=== PATIENT | male | born 1995 | race Caucasian/White ===

== ENCOUNTER 2016-07-11 17:42 | Emergency (ER) | payer OTHER ==
--- NOTE | 2016-07-11 19:24 | REP ---
Clinical: Foreign body. Technique: AP, lateral, bilateral oblique views of the left fourth digit. Findings: Foreign body consistent with staple is identified in the soft tissues at the level of the distal interphalangeal joint. Osseous involvement cannot definitively be excluded. No obvious fracture. Impression: Foreign body consistent with staple in the soft tissues at the level of the DIP joint. Signed by Jace Kee MD 07/11/2016 07:15 P
[2016-07-11] MEDS ORDERED: LIDOCAINE 1% MDV 20ML VIAL As Ordered ONE (20:06)
[2016-07-11] MEDS ORDERED: CEPHALEXIN 250 MG CAP As Ordered ONE (20:31)
--- NOTE | 2016-07-11 20:55 | EDDOCDS ---
Physician Documentation [facility] Name: Demetria Nayak Age: 21 yrs Sex: Male : 1995 Arrival Date: 07/11/2016 Time: 17:42 Bed TR7 Private MD: MASOUD Tom Disposition: 07/11/16 20:29 Discharged to Home/Self Care. Impression: Puncture wound with foreign body of left ring finger without damage to nail - STAPLE. - Condition is Stable. - Discharge Instructions: Puncture Wound. - Prescriptions for Keflex 500 mg Oral Capsule - take 1 capsule by ORAL route every 8 hours for 10 days; 30 capsule. - Medication Reconciliation, Local Pharmacy Hours form. - Follow up: Emergency Department; When: As needed; Reason: Worsening of conditions. Follow up: MASOUD Tom; When: 4 - 5 days; Reason: Wound/Symptom Recheck, Recheck today's complaints, Continuance of care. - Problem is new. - Symptoms have improved. Historical: - Allergies: no known allergies; - Home Meds: 1. none - PMHx: none; - PSHx: none; - Social history: Smoking status: Patient states was never smoker of tobacco. No barriers to communication noted, The patient speaks fluent Kyrgyz, Speaks appropriately for age. - Family history: Not pertinent. - : The pt / caregiver states he / she is not on anticoagulants. Home medication list is obtained from the patient. - Exposure Risk Screening:: None identified. Vital Signs: 07/11 17:44 BP 149 / 80; Pulse 81; Resp 17; Temp 97.7(T); Pulse Ox 100% on R/A; Weight 79.38 kg / lr2 175 lbs (R); Height 6 ft. 0 in. (182.88 cm) (R); Pain 10/10; 20:35 BP 131 / 65; Pulse 72; Resp 18; Temp 97.5(O); Pulse Ox 99% on R/A; Pain 0/10; ct3 17:44 Body Mass Index 23.73 (79.38 kg, 182.88 cm) lr2 Procedures: 20:08 Foreign Body Removal: a staple, from the left left hand, by using a hemostat, The dt4 patient tolerated the removal well, LEFT RING FINGER CLEANED WITH BETADINE AND DIGITAL BLOCK PERFORMED WITH 1% LIDO WITHOUT EPI. STAPLE REMOVED FROM LEFT RING FINGER. WOUND IRRIGATED WITH STERILE SALINE. PT TOLERATED WELL. TETANUS GIVEN LAST YEAR, PER PT. . MDM: 17:57 Fingers Ordered. EDMS 19:55 Financial registration complete. 20:04 Lidocaine 10 mg/mL (1 %) 10 ml Infiltration once; to bedside, WITHOUT EPI PLEASE, THANK dt4 YOU. ordered. 20:28 Wound Care ordered. dt4 20:29 Cephalexin 500 mg PO once ordered. dt4 20:46 [facility] Payment Agreement was scanned into [employer] and attached to record. gb Administered Medications: 20:37 Drug: Lidocaine 10 ml [lidocaine 10 mg/mL (1 %) injection solution (10 mL)] Route: ld5 Infiltration; 20:37 Follow up: by provider ld5 20:37 Drug: Cephalexin 500 mg [cephalexin 250 mg capsule (2 caps)] Route: PO; ld5 Signatures: Dispatcher MedHost EDNC Marjorie Archer, Reg Reg gb Brianna GarcíaRN RN ld5 Christine Garcia RN RN dsf Rhianna Reece, [place] PAAndrew dt4 The chart was reviewed and I authenticate all verbal orders and agree with the evaluation and treatment provided.Attachments: 20:46 [facility] Payment Agreement gb MTDD
--- NOTE | 2016-07-11 20:55 | EDDOCDS ---
Nurse's Notes [facility] Name: Demetria Nayak Age: 21 yrs Sex: Male : 1995 Arrival Date: 07/11/2016 Time: 17:42 Bed TR7 Private MD: Negro [facility] Diagnosis: Puncture wound with foreign body of left ring finger without damage to nail-STAPLE Presentation: 07/11 17:48 Presenting complaint: Patient states: staple to left ring finger. Adult Sepsis dsf Screening: The patient does not have new or worsening altered mentation. Patient's respiratory rate is less than 22. Systolic blood pressure is greater than 100. Patient has a qSOFA score of 0- Negative Sepsis Screen. Suicide/Homicide risk assessment- the patient denies having any suicidal and/or homicidal ideations and does not present with any other emotional, behavioral or mental health complaints. Status: The patient is an active duty emergency services dispatcher. Transition of care: patient was not received from another setting of care. 17:48 Acuity: ROSALINA Level 4 dsf 17:48 Method Of Arrival: Walkin/Carried/Asstd dsf Triage Assessment: 17:48 General: Appears in no apparent distress, Behavior is appropriate for age, cooperative. dsf Pain: Location: left ring finger Pain currently is 10 out of 10 on a pain scale. Quality of pain is described as stabbing. HIV screening NA for this visit active duty . Musculoskeletal: Reports staple to left ring finger did not pull out it was from a staple gun. Historical: - Allergies: no known allergies; - Home Meds: 1. none - PMHx: none; - PSHx: none; - Social history: Smoking status: Patient states was never smoker of tobacco. No barriers to communication noted, The patient speaks fluent Yakut, Speaks appropriately for age. - Family history: Not pertinent. - : The pt / caregiver states he / she is not on anticoagulants. Home medication list is obtained from the patient. - Exposure Risk Screening:: None identified. Screenin:37 Screening information is obtained from the patient. Fall risk: No risks identified. ld5 Assistance ADL's: requires no assistance with activities of daily living. Abuse/DV Screen: The patient / caregiver reports he/she is: not in a situation that causes fear, pain or injury. Nutritional screening: No deficits noted. Advance Directives: Currently, there is no health care proxy. home support is adequate. Assessment: 20:37 General: Appears in no apparent distress, Behavior is cooperative. Pain: Location: left ld5 ring finger. Neurological: Level of Consciousness is awake, alert. Respiratory: Airway is patent Respiratory effort is even, unlabored. Musculoskeletal: Range of motion intact in all extremities. Vital Signs: 17:44 BP 149 / 80; Pulse 81; Resp 17; Temp 97.7(T); Pulse Ox 100% on R/A; Weight 79.38 kg lr2 (R); Height 6 ft. 0 in. (182.88 cm) (R); Pain 10/10; 20:35 BP 131 / 65; Pulse 72; Resp 18; Temp 97.5(O); Pulse Ox 99% on R/A; Pain 0/10; ct3 17:44 Body Mass Index 23.73 (79.38 kg, 182.88 cm) lr2 Vitals: 17:44 Log In Time: July 11, 2016 at 17:42. lr2 ED Course: 17:44 Patient visited by Brianna Bardales. lr2 17:44 Negro [facility] is Private Physician. lr2 17:44 Patient moved to Waiting lr2 17:45 Patient moved to Pre RCE lr2 17:49 Triage Initiated dsf 19:09 Patient moved to Triage 1 cz 19:45 Patient name changed from Demetria\S\\S\Malini\S\ to Demetria\S\Piarraire\S\Malini. EDMS 19:46 [facility]ian[facility] Reece [facility]C [facility] dt4 19:46 Jeffrey Ayala DO is Attending Physician. dt4 19:46 Patient visited by Rhianna Reece PA-C. dt4 20:03 Patient moved to PD2 / ct3 20:11 Fingers Returned. EDMS 20:28 [facility] is Referral Physician. dt4 20:36 Patient visited by Yomaira Longoria PCA. ct3 20:36 Patient moved to TR7 ld5 20:37 No IV's were initiated during this patient's visit. ld5 20:38 Patient visited by Brianna García RN. ld5 20:46 [facility] Payment Agreement was scanned into [employer]View and attached to record. gb 20:51 The patient / caregiver is instructed regarding the plan of care and ED course. Patient ld5 has correct armband on for positive identification. 20:54 Patient visited by Brianna García RN. ld5 20:54 Assist provider with foreign body removal of staple from left ring finger. Dressings: ld5 Band aid. Administered Medications: 20:37 Drug: Lidocaine 10 ml [lidocaine 10 mg/mL (1 %) injection solution (10 mL)] Route: ld5 Infiltration; 20:37 Follow up: by provider ld5 20:37 Drug: Cephalexin 500 mg [cephalexin 250 mg capsule (2 caps)] Route: PO; ld5 Intake: Order Results: Radiology Order: Fingers Test: Fingers REASON FOR EXAMINATION: LEFT RING FINGER FB; Clinical: Foreign body.; ; Technique: AP, lateral, bilateral oblique views of the left fourth digit.; ; Findings:; Foreign body consistent with staple is identified in the soft tissues at the; level of the distal interphalangeal joint. Osseous involvement cannot; definitively be excluded. No obvious fracture.; ; Impression:; Foreign body consistent with staple in the soft tissues at the level of the DIP; joint.; ; ; Signed by; Jace Kee MD 07/11/2016 07:15 P; Outcome: 20:29 Discharge ordered by Provider. dt4 20:54 Discharge Assessment: Patient awake, alert and oriented x 3. No cognitive and/or ld5 functional deficits noted. Patient verbalized understanding of disposition instructions. patient administered narcotics - no. The following High Risk Discharge criteria are identified: None. Discharged to home ambulatory. Condition: stable. Discharge instructions given to patient, Instructed on discharge instructions, follow up and referral plans. medication usage, wound care, Demonstrated understanding of instructions, medications, Pt was receptive of discharge instructions/ teaching. Prescriptions given X 1. No special radiology studies were completed. Property :Personal belongings accompany Pt. 20:54 Patient left the ED. ld5 Signatures: Dispatcher Med[employer] EDMS Philip Victor, DARCY RN cz Marjorie Archer, Reg Reg gb Brianna García,RN RN ld5 Yomaira Longoria, BITUMASTIC APPLIER BITUMASTIC APPLIER ct3 Christine GarciaRN RN dsf Rhianna Reece, PA-C PA-C dt4 Brianna Bardales lrMichael RANJEETD
--- NOTE | 2016-07-13 21:55 | EDDOCDS ---
Physician Documentation [facility] Name: Demetria Nayak Age: 21 yrs Sex: Male : 1995 Arrival Date: 07/11/2016 Time: 17:42 Bed TR7 Private MD: MASOUD Tom Disposition: 07/11/16 20:29 Discharged to Home/Self Care. Impression: Puncture wound with foreign body of left ring finger without damage to nail - STAPLE. - Condition is Stable. - Discharge Instructions: Puncture Wound. - Prescriptions for Keflex 500 mg Oral Capsule - take 1 capsule by ORAL route every 8 hours for 10 days; 30 capsule. - Medication Reconciliation, Local Pharmacy Hours form. - Follow up: Emergency Department; When: As needed; Reason: Worsening of conditions. Follow up: MASOUD Tom; When: 4 - 5 days; Reason: Wound/Symptom Recheck, Recheck today's complaints, Continuance of care. - Problem is new. - Symptoms have improved. Historical: - Allergies: no known allergies; - Home Meds: 1. none - PMHx: none; - PSHx: none; - Social history: Smoking status: Patient states was never smoker of tobacco. No barriers to communication noted, The patient speaks fluent Pashto, Speaks appropriately for age. - Family history: Not pertinent. - : The pt / caregiver states he / she is not on anticoagulants. Home medication list is obtained from the patient. - Exposure Risk Screening:: None identified. Vital Signs: 07/11 17:44 BP 149 / 80; Pulse 81; Resp 17; Temp 97.7(T); Pulse Ox 100% on R/A; Weight 79.38 kg / lr2 175 lbs (R); Height 6 ft. 0 in. (182.88 cm) (R); Pain 10/10; 20:35 BP 131 / 65; Pulse 72; Resp 18; Temp 97.5(O); Pulse Ox 99% on R/A; Pain 0/10; ct3 17:44 Body Mass Index 23.73 (79.38 kg, 182.88 cm) lr2 Procedures: 20:08 Foreign Body Removal: a staple, from the left left hand, by using a hemostat, The dt4 patient tolerated the removal well, LEFT RING FINGER CLEANED WITH BETADINE AND DIGITAL BLOCK PERFORMED WITH 1% LIDO WITHOUT EPI. STAPLE REMOVED FROM LEFT RING FINGER. WOUND IRRIGATED WITH STERILE SALINE. PT TOLERATED WELL. TETANUS GIVEN LAST YEAR, PER PT. . MDM: 17:57 Fingers Ordered. EDMS 19:55 Financial registration complete. gb 20:04 Lidocaine 10 mg/mL (1 %) 10 ml Infiltration once; to bedside, WITHOUT EPI PLEASE, THANK dt4 YOU. ordered. 20:28 Wound Care ordered. dt4 20:29 Cephalexin 500 mg PO once ordered. dt4 20:46 [facility] Payment Agreement was scanned into [employer] and attached to record. gb 21:08 T-Sheet-- Draft Copy was scanned into [employer] and attached to record. klr 21:11 Radiology Report was scanned into [employer] and attached to record. klr Administered Medications: 20:37 Drug: Lidocaine 10 ml [lidocaine 10 mg/mL (1 %) injection solution (10 mL)] Route: ld5 Infiltration; 20:37 Follow up: by provider ld5 20:37 Drug: Cephalexin 500 mg [cephalexin 250 mg capsule (2 caps)] Route: PO; ld5 Signatures: Dispatcher MedHost EDOH Marjorie Archer, Reg Reg gb Brianna GarcíaRN RN ld5 Christine Garcia RN RN dsf Rhianna Reece PA-C PA-C dt4 Debbie Bernstein The chart was reviewed and I authenticate all verbal orders and agree with the evaluation and treatment provided.Attachments: 20:46 [facility] Payment Agreement gb 21:08 T-Sheet-- Draft Copy klr Chart Complete MTDD
--- NOTE | 2016-07-13 21:55 | EDDOCDS ---
Physician Documentation [facility] Name: Demetria Nayak Age: 21 yrs Sex: Male : 1995 Arrival Date: 07/11/2016 Time: 17:42 Bed TR7 Private MD: MASOUD Tom Disposition: 07/11/16 20:29 Discharged to Home/Self Care. Impression: Puncture wound with foreign body of left ring finger without damage to nail - STAPLE. - Condition is Stable. - Discharge Instructions: Puncture Wound. - Prescriptions for Keflex 500 mg Oral Capsule - take 1 capsule by ORAL route every 8 hours for 10 days; 30 capsule. - Medication Reconciliation, Local Pharmacy Hours form. - Follow up: Emergency Department; When: As needed; Reason: Worsening of conditions. Follow up: MASOUD Tom; When: 4 - 5 days; Reason: Wound/Symptom Recheck, Recheck today's complaints, Continuance of care. - Problem is new. - Symptoms have improved. Historical: - Allergies: no known allergies; - Home Meds: 1. none - PMHx: none; - PSHx: none; - Social history: Smoking status: Patient states was never smoker of tobacco. No barriers to communication noted, The patient speaks fluent Setswana, Speaks appropriately for age. - Family history: Not pertinent. - : The pt / caregiver states he / she is not on anticoagulants. Home medication list is obtained from the patient. - Exposure Risk Screening:: None identified. Vital Signs: 07/11 17:44 BP 149 / 80; Pulse 81; Resp 17; Temp 97.7(T); Pulse Ox 100% on R/A; Weight 79.38 kg / lr2 175 lbs (R); Height 6 ft. 0 in. (182.88 cm) (R); Pain 10/10; 20:35 BP 131 / 65; Pulse 72; Resp 18; Temp 97.5(O); Pulse Ox 99% on R/A; Pain 0/10; ct3 17:44 Body Mass Index 23.73 (79.38 kg, 182.88 cm) lr2 Procedures: 20:08 Foreign Body Removal: a staple, from the left left hand, by using a hemostat, The dt4 patient tolerated the removal well, LEFT RING FINGER CLEANED WITH BETADINE AND DIGITAL BLOCK PERFORMED WITH 1% LIDO WITHOUT EPI. STAPLE REMOVED FROM LEFT RING FINGER. WOUND IRRIGATED WITH STERILE SALINE. PT TOLERATED WELL. TETANUS GIVEN LAST YEAR, PER PT. . MDM: 17:57 Fingers Ordered. EDMS 19:55 Financial registration complete. gb 20:04 Lidocaine 10 mg/mL (1 %) 10 ml Infiltration once; to bedside, WITHOUT EPI PLEASE, THANK dt4 YOU. ordered. 20:28 Wound Care ordered. dt4 20:29 Cephalexin 500 mg PO once ordered. dt4 20:46 [facility] Payment Agreement was scanned into [employer] and attached to record. gb 21:08 T-Sheet-- Draft Copy was scanned into [employer] and attached to record. klr 21:11 Radiology Report was scanned into [employer] and attached to record. klr Administered Medications: 20:37 Drug: Lidocaine 10 ml [lidocaine 10 mg/mL (1 %) injection solution (10 mL)] Route: ld5 Infiltration; 20:37 Follow up: by provider ld5 20:37 Drug: Cephalexin 500 mg [cephalexin 250 mg capsule (2 caps)] Route: PO; ld5 Signatures: Dispatcher MedHost EDMN Marjorie Archer, Reg Reg gb Brianna GarcíaRN RN ld5 Christine Garcia RN RN dsf Rhianna Reece PA-C PA-C dt4 Debbie Bernstein The chart was reviewed and I authenticate all verbal orders and agree with the evaluation and treatment provided.Attachments: 20:46 [facility] Payment Agreement gb 21:08 T-Sheet-- Draft Copy klr Chart Complete MTDD
--- NOTE | 2016-07-13 21:55 | EDDOCDS ---
Nurse's Notes [facility] Name: Demetria Nayak Age: 21 yrs Sex: Male : 1995 Arrival Date: 07/11/2016 Time: 17:42 Bed TR7 Private MD: Negro [facility] Diagnosis: Puncture wound with foreign body of left ring finger without damage to nail-STAPLE Presentation: 07/11 17:48 Presenting complaint: Patient states: staple to left ring finger. Adult Sepsis dsf Screening: The patient does not have new or worsening altered mentation. Patient's respiratory rate is less than 22. Systolic blood pressure is greater than 100. Patient has a qSOFA score of 0- Negative Sepsis Screen. Suicide/Homicide risk assessment- the patient denies having any suicidal and/or homicidal ideations and does not present with any other emotional, behavioral or mental health complaints. Status: The patient is an active duty technical service engineer. Transition of care: patient was not received from another setting of care. 17:48 Acuity: ROSALINA Level 4 dsf 17:48 Method Of Arrival: Walkin/Carried/Asstd dsf Triage Assessment: 17:48 General: Appears in no apparent distress, Behavior is appropriate for age, cooperative. dsf Pain: Location: left ring finger Pain currently is 10 out of 10 on a pain scale. Quality of pain is described as stabbing. HIV screening NA for this visit active duty . Musculoskeletal: Reports staple to left ring finger did not pull out it was from a staple gun. Historical: - Allergies: no known allergies; - Home Meds: 1. none - PMHx: none; - PSHx: none; - Social history: Smoking status: Patient states was never smoker of tobacco. No barriers to communication noted, The patient speaks fluent Tamazight, Speaks appropriately for age. - Family history: Not pertinent. - : The pt / caregiver states he / she is not on anticoagulants. Home medication list is obtained from the patient. - Exposure Risk Screening:: None identified. Screenin:37 Screening information is obtained from the patient. Fall risk: No risks identified. ld5 Assistance ADL's: requires no assistance with activities of daily living. Abuse/DV Screen: The patient / caregiver reports he/she is: not in a situation that causes fear, pain or injury. Nutritional screening: No deficits noted. Advance Directives: Currently, there is no health care proxy. home support is adequate. Assessment: 20:37 General: Appears in no apparent distress, Behavior is cooperative. Pain: Location: left ld5 ring finger. Neurological: Level of Consciousness is awake, alert. Respiratory: Airway is patent Respiratory effort is even, unlabored. Musculoskeletal: Range of motion intact in all extremities. Vital Signs: 17:44 BP 149 / 80; Pulse 81; Resp 17; Temp 97.7(T); Pulse Ox 100% on R/A; Weight 79.38 kg lr2 (R); Height 6 ft. 0 in. (182.88 cm) (R); Pain 10/10; 20:35 BP 131 / 65; Pulse 72; Resp 18; Temp 97.5(O); Pulse Ox 99% on R/A; Pain 0/10; ct3 17:44 Body Mass Index 23.73 (79.38 kg, 182.88 cm) lr2 Vitals: 17:44 Log In Time: July 11, 2016 at 17:42. lr2 ED Course: 17:44 Patient visited by Brianna Bardales. lr2 17:44 Negro [facility] is Private Physician. lr2 17:44 Patient moved to Waiting lr2 17:45 Patient moved to Pre RCE lr2 17:49 Triage Initiated dsf 19:09 Patient moved to Triage 1 cz 19:45 Patient name changed from Demetria\S\\S\Malini\S\ to Demetria\S\Piarraire\S\Malini. EDMS 19:46 [facility]. dt4 19:46 Jeffrey Ayala DO is Attending Physician. dt4 19:46 Patient visited by Rhianna Reece PA-C. dt4 20:03 Patient moved to PD2 / ct3 20:11 Fingers Returned. EDMS 20:28 Negro [facility] is Referral Physician. dt4 20:36 Patient visited by Yomaira Longoria PCA. ct3 20:36 Patient moved to TR7 ld5 20:37 No IV's were initiated during this patient's visit. ld5 20:38 Patient visited by Brianna García RN. ld5 20:46 [facility] Payment Agreement was scanned into [employer] and attached to record. gb 20:51 The patient / caregiver is instructed regarding the plan of care and ED course. Patient ld5 has correct armband on for positive identification. 20:54 Patient visited by Brianna García RN. ld5 20:54 Assist provider with foreign body removal of staple from left ring finger. Dressings: ld5 Band aid. 21:08 T-Sheet-- Draft Copy was scanned into [employer] and attached to record. klr 21:11 Radiology Report was scanned into [employer] and attached to record. klr Administered Medications: 20:37 Drug: Lidocaine 10 ml [lidocaine 10 mg/mL (1 %) injection solution (10 mL)] Route: ld5 Infiltration; 20:37 Follow up: by provider ld5 20:37 Drug: Cephalexin 500 mg [cephalexin 250 mg capsule (2 caps)] Route: PO; ld5 Intake: Order Results: Radiology Order: Fingers Test: Fingers REASON FOR EXAMINATION: LEFT RING FINGER FB; Clinical: Foreign body.; ; Technique: AP, lateral, bilateral oblique views of the left fourth digit.; ; Findings:; Foreign body consistent with staple is identified in the soft tissues at the; level of the distal interphalangeal joint. Osseous involvement cannot; definitively be excluded. No obvious fracture.; ; Impression:; Foreign body consistent with staple in the soft tissues at the level of the DIP; joint.; ; ; Signed by; Jace Kee MD 07/11/2016 07:15 P; Outcome: 20:29 Discharge ordered by Provider. dt4 20:54 Discharge Assessment: Patient awake, alert and oriented x 3. No cognitive and/or ld5 functional deficits noted. Patient verbalized understanding of disposition instructions. patient administered narcotics - no. The following High Risk Discharge criteria are identified: None. Discharged to home ambulatory. Condition: stable. Discharge instructions given to patient, Instructed on discharge instructions, follow up and referral plans. medication usage, wound care, Demonstrated understanding of instructions, medications, Pt was receptive of discharge instructions/ teaching. Prescriptions given X 1. No special radiology studies were completed. Property :Personal belongings accompany Pt. 20:54 Patient left the ED. ld5 Signatures: [facility] Philip Victor RN RN cz Barnhardt, Gloria, Reg Reg Brianna CochranRN RN ld5 Von, Yomaira, TANK OPERATOR TANK OPERATOR ct3 Christine Garcia,RN RN dsf Rhianna Reece, [place] PAMildredC dt4 Debbie Bernstein Laura lr2 Chart Complete MTDD
== END 2016-07-11 20:54 | disposition home or self-care (01) ==
LOC: M ED 17:42
DX: S61.245A Puncture wound with foreign body of left ring finger without damage to nail, initial encounter (principal); W26.9XXA Contact with unspecified sharp object(s), initial encounter; Y92.89 Other specified places as the place of occurrence of the external cause; Y93.89 Activity, other specified; Y99.8 Other external cause status